=== PATIENT | male | born 1985 ===

== ENCOUNTER 2018-03-22 13:53 | Emergency (ER) | payer OTHER ==
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
[2018-03-22 15:20] VITALS: BP 114/71
== END 2018-03-22 15:18 | disposition home or self-care (01) ==
DX: S80.01XA Contusion of right knee, initial encounter (principal); F17.200 Nicotine dependence, unspecified, uncomplicated; V18.0XXA Pedal cycle driver injured in noncollision transport accident in nontraffic accident, initial encounter; Y92.410 Unspecified street and highway as the place of occurrence of the external cause